=== PATIENT | female | born 1945 | race Caucasian/White ===

== ENCOUNTER 2020-08-09 22:08 | Emergency (ER) | payer MEDICARE ==
[~2020-08-09] VITALS: Ht 154.9 cm; Wt 68.0 kg
--- NOTE | 2020-08-09 22:25 | NUR ---
ED MD at bedside
[2020-08-09] MEDS ORDERED: KETOROLAC 30 MG/1 ML IVPush ONE (22:30)
[2020-08-09] MEDS ORDERED: DIAZEPAM 5 MG TABLET PO ONE (22:30)
--- NOTE | 2020-08-09 22:35 | NUR ---
BIBA. A&o x4, answering questions appropriately. States she has had to move boxes lately d/t sudden move and strained upper back/L shoulder. States spasms began this evening, unable to ambulate. Denies fall. Pt was given 50 mg fentanyl and 2 mg versed by EMS with good effect. Upon arrival to ED, pt able to move all extremities. No swelling/gross deformities noted. Turned and pivoted from EMS to ED stretcher with 1 staff assist. Denies numbess/tinling. Denies incontinence. States hx of lower back pain.
[2020-08-09] MEDS ORDERED: KETOROLAC 30 MG/1 ML ONE (22:57)
[2020-08-09] MEDS ORDERED: DIAZEPAM 5 MG TABLET ONE (22:57)
[2020-08-10 01:20] VITALS: BP 99/62
--- NOTE | 2020-08-10 01:22 | NUR ---
Pt ambulated out of ED independently. Slow, steady gait. Cab voucher provided. Pt states staff at [facility] 14/06 to assist her into apartment
== END 2020-08-10 01:23 | disposition home or self-care (01) ==
LOC: ED 22:38
DX: S29.012A Strain of muscle and tendon of back wall of thorax, initial encounter (principal); X58.XXXA Exposure to other specified factors, initial encounter; Y93.89 Activity, other specified; Y92.89 Other specified places as the place of occurrence of the external cause; Y99.8 Other external cause status
CPT/HCPCS: 71045; 72072; 72110; 96374; 99284; J1885